=== PATIENT | male | born 1985 | race Two or more races ===

== ENCOUNTER 2020-10-01 18:36 | Emergency (ER) | payer OTHER ==
[~2020-10-01] VITALS: Ht 175.3 cm; Wt 77.3 kg
[2020-10-01 21:09] VITALS: BP 135/58
== END 2020-10-01 21:11 | disposition home or self-care (01) ==
LOC: EMS 18:36
DX: L03.313 Cellulitis of chest wall (principal)
CPT/HCPCS: 99283; Z7502

== ENCOUNTER 2020-10-03 13:16 | Emergency (ER) | payer OTHER ==
[~2020-10-03] VITALS: Ht 175.3 cm; Wt 77.3 kg
[2020-10-03 15:30] VITALS: BP 129/83
[2020-10-03] MEDS ORDERED: LIDOCAINE 1% 10 ML VIAL SQ ONE (15:45)
[2020-10-03] MEDS ORDERED: LIDOCAINE/PF 1% 2 ML VIAL IM ONE (16:00)
[2020-10-03] MEDS ORDERED: CefTRIAXone SODIUM 1 GM/VIAL IM ONE (16:00)
== END 2020-10-03 17:00 | disposition home or self-care (01) ==
LOC: EMS 13:18
DX: L02.213 Cutaneous abscess of chest wall (principal); L03.313 Cellulitis of chest wall
CPT/HCPCS: 10060; 87070; 96372; 99283; J0696; J3490 ×2

== ENCOUNTER 2020-10-05 12:36 | Emergency (ER) | payer OTHER ==
[~2020-10-05] VITALS: Ht 175.3 cm; Wt 77.3 kg
[2020-10-05 12:39] VITALS: BP 129/77
[2020-10-05] MEDS ORDERED: ANTIBIOTIC PO (12:47)
== END 2020-10-05 13:29 | disposition home or self-care (01) ==
LOC: EMS 12:40
DX: Z48.00 Encounter for change or removal of nonsurgical wound dressing (principal)
CPT/HCPCS: Z7502

== ENCOUNTER 2022-06-04 03:23 | Emergency (ER) | payer OTHER ==
[~2022-06-04] VITALS: Ht 175.3 cm; Wt 75.0 kg
[~2022-06-04 03:23] MED LIST: ANTIBIOTIC PO
[2022-06-04] MEDS ORDERED: KETOROLAC TROMETHAMINE 30 MG/ML VIAL IVP ONE (06:30)
[2022-06-04] MEDS ORDERED: HYDROmorphone 2 MG/ML VIAL IVP ONE ×2 (06:30→07:30)
[2022-06-04] MEDS ORDERED: ONDANSETRON HCL 4 MG/2 ML VIAL IVP ONE (06:30)
[2022-06-04] MEDS ORDERED: CefTRIAXone 1 GM/DEXTROSE 50 ML IV ONE (06:30)
[2022-06-04] MEDS ORDERED: LIDOCAINE 1% 20 ML VIAL SQ ONE (06:30)
[2022-06-04 06:47] LABS: BASOPHILS % (AUTO) 0.4 % (0.0-2.0); EOSINOPHILS % (AUTO) 0.3 % (1.0-6.0); HEMATOCRIT 44.2 % (41-53); HEMOGLOBIN 14.8 g/dL (13.5-17.5); LYMPHOCYTES # (AUTO) 1.6 K/uL (1.0-4.8); LYMPHOCYTES % (AUTO) 10.8 % (22.0-44.0); MEAN CORPUSCULAR HGB CONC 33.4 G/dL (31.0-37.0); MEAN CORPUSCULAR VOLUME 90 fL (80-100); MONOCYTES # (AUTO) 1.3 K/uL (0.1-1.0); MONOCYTES % (AUTO) 8.4 % (2.0-9.0); NEUTROPHILS # (AUTO) 12.2 K/uL (1.8-7.7); NEUTROPHILS % (AUTO) 80.1 % (40.0-70.0); PLATELET COUNT (AUTO) 446 K/uL (150-450); RED BLOOD CELL COUNT(AUTO) 4.92 MIL/uL (4.50-5.90)
[2022-06-04 06:56] LABS: ANION GAP 6 mmol/L (8-16); CALCIUM, TOTAL 9.4 mg/dL (8.8-10.5); CARBON DIOXIDE 32 mmol/L (22-29); CHLORIDE 101 mmol/L (98-107); CREATININE 0.66 mg/dL (0.60-1.30); GLOMERULAR FILTR. RATE CALC > 60 mL/min (>60); GLUCOSE,RANDOM 120 mg/dL (70-110); POTASSIUM 4.1 mmol/L (3.5-5.1); SODIUM SERUM 139 mmol/L (136-145); UREA NITROGEN, BLOOD 16 mg/dL (7-18)
[2022-06-04 07:10] VITALS: BP 125/84
[2022-06-04 07:11] LABS: ALANINE AMINOTRANSFERASE 19 U/L (12-78); ALBUMIN 3.8 g/dL (3.4-5.0); ALKALINE PHOSPHATASE 83 U/L (46-116); ASPARTATE AMINOTRANSFERASE 13 U/L (15-37); BILIRUBIN,TOTAL 0.4 mg/dL (0.1-1.0); TOTAL PROTEIN, SERUM 8.3 g/dL (6.4-8.2)
[2022-06-04] MEDS ORDERED: METR500 PO (07:47)
[2022-06-04] MEDS ORDERED: AMOX1TAB16 PO (07:47)
[2022-06-04] MEDS ORDERED: HYDR-4723 PO (07:47)
[2022-06-04] MEDS ORDERED: POLY238P PO (07:47)
[2022-06-04] MEDS ORDERED: IBUP-1554 PO (07:47)
== END 2022-06-04 08:13 | disposition home or self-care (01) ==
LOC: EMS 03:26
DX: K61.1 Rectal abscess (principal)
CPT/HCPCS: 46040; 99284; 96365; 96375; 80053; 85025; 36415; J0696; J1170; J1885; J3490; J2405; 10060

== ENCOUNTER 2023-07-15 16:32 | Emergency (ER) | payer OTHER ==
[~2023-07-15] VITALS: Ht 175.3 cm; Wt 76.4 kg
[~2023-07-15 16:32] MED LIST changes: +AMOX1TAB16 PO; -ANTIBIOTIC PO; +HYDR-4723 PO; +IBUP-1554 PO; +METR500 PO; +POLY238P PO
[2023-07-15 16:33] VITALS: TEMP 98.2
[2023-07-15 16:46] VITALS: BP 129/75; PULSE 116; RESP 18
[2023-07-15] MEDS ORDERED: HYDROCODONE/ACETAMINOPHEN 5-325 MG TABLET PO ONE (17:15)
[2023-07-15] MEDS ORDERED: LIDOCAINE 1% 10 ML VIAL SQ ONE (17:15)
[2023-07-15] MEDS ORDERED: IBUP-1554 PO (18:26)
[2023-07-15] MEDS ORDERED: DOXY-354 PO (18:26)
[2023-07-15] MEDS ORDERED: ACET-2080 PO (18:26)
[2023-07-15] MEDS ORDERED: CEPH-558 PO (18:26)
[2023-07-15] MEDS ORDERED: BACI28.410 TP (18:26)
[2023-07-15] MEDS ORDERED: BACITRACIN 0.9 GM PACKET OINTMENT TP ONE (18:30)
== END 2023-07-15 18:41 | disposition home or self-care (01) ==
LOC: EMS 16:32
DX: L03.011 Cellulitis of right finger (principal)
CPT/HCPCS: 99283; 10060; J3490

== ENCOUNTER 2025-03-20 14:27 | Emergency (ER) | payer BC, OTHER ==
[~2025-03-20] VITALS: Ht 177.8 cm; Wt 77.3 kg
[~2025-03-20 14:27] MED LIST changes: +ACET-2080 PO; -AMOX1TAB16 PO; +BACI28.410 TP; +CEPH-558 PO; +DOXY-354 PO; +HYDR-4062 PO; -HYDR-4723 PO; -METR500 PO
[2025-03-20 14:32] VITALS: BP 127/88; PULSE 88; RESP 18; TEMP 98.2; O2SAT 99
[2025-03-20] MEDS: CEPHALEXIN MONOHYDRATE 500 MG CAPSULE PO ONE (14:57)
[2025-03-20] MEDS: SULFAMETHOX/TRIMETH DS 800-160 MG/TABLET PO ONE (14:57)
[2025-03-20] MEDS ORDERED: SULF-261 PO (15:00)
[2025-03-20] MEDS ORDERED: CEPH-558 PO (15:00)
== END 2025-03-20 15:09 | disposition home or self-care (01) ==
LOC: EMS 14:27
DX: L03.116 Cellulitis of left lower limb (principal)
CPT/HCPCS: 99284; Z7502; Z7610

== ENCOUNTER 2025-05-07 19:27 | Inpatient (IN) | payer BC, OTHER ==
[~2025-05-07] VITALS: Ht 175.3 cm; Wt 72.0 kg
[~2025-05-07 19:27] MED LIST changes: -ACET-2080 PO; -BACI28.410 TP; -DOXY-354 PO; -HYDR-4062 PO; -IBUP-1554 PO; -POLY238P PO; +SULF-261 PO
[2025-05-07] MEDS: 0.9% SODIUM CHLORIDE 10 ML SYRINGE IVP PRN (20:04)
[2025-05-07] MEDS: ACETAMINOPHEN 1000 MG/ISO-OSM 100 ML IV ONE (20:04)
[2025-05-07] MEDS: SODIUM CHLORIDE 0.9% 2,150 ML IV ONE (20:05)
[2025-05-07 20:13] LABS: COVID AG,FIA SOURCE NASAL SWAB
[2025-05-07 20:15] LABS: PLATELET COUNT (AUTO) 304 K/uL (150-450); RED BLOOD CELL COUNT(AUTO) 5.13 MIL/uL (4.50-5.90); RED CELL DISTRIBUTION WIDTH 14.4 % (11.5-14.5); WHITE BLOOD COUNT (AUTO) 4.4 K/uL (4.5-11.0)
[2025-05-07 20:26] LABS: CALCIUM, TOTAL 8.1 mg/dL (8.8-10.5); CREATININE 0.92 mg/dL (0.60-1.30); GLOMERULAR FILTR. RATE CALC > 60 mL/min (>60); GLUCOSE,RANDOM 105 mg/dL (70-110); SODIUM SERUM 134 mmol/L (136-145); UREA NITROGEN, BLOOD 10 mg/dL (7-18)
[2025-05-07 20:31] LABS: ALCOHOL, BLOOD (SERUM) < 3 mg/dL (0-10)
[2025-05-07 20:32] LABS: ASPARTATE AMINOTRANSFERASE 17 U/L (15-37); CREATINE KINASE, TOTAL ONLY 84 U/L (39-308); TOTAL PROTEIN, SERUM 7.4 g/dL (6.4-8.2); TROPONIN I-HIGH SENSITIVITY 4 ng/L (<76)
[2025-05-07 20:35] LABS: LACTIC ACID 0.6 mmol/L (0.4-2.0)
[2025-05-07] MEDS ORDERED: IOHEXOL 350 MG/ML 100 ML VIAL ONE (20:46)
[2025-05-07] MEDS ORDERED: SODIUM CHLORIDE 0.9% 100 ML ONE (20:46)
[2025-05-07] MEDS ORDERED: 0.9% SODIUM CHLORIDE 10 ML SYRINGE IVP ONE (20:46)
[2025-05-07 20:57] LABS: SARS-COV2 (COVID) ANTIGEN,FIA Negative (Negative)
[2025-05-07 20:59] LABS: INFLUENZA TYPE A NEGATIVE FOR TYPE A (NEGATIVE); INFLUENZA TYPE B NEGATIVE FOR TYPE B (NEGATIVE)
[2025-05-07] MEDS: AMPICILLIN SODIUM/SULBACTAM NA 3 GM in SODIUM CHLORIDE 0.9% 100 ML IV ONE (22:12)
[2025-05-07 22:19] LABS: APPEARANCE,URINE CLEAR (CLEAR); GLUCOSE, URINE (UA) NEGATIVE (NEGATIVE); LEUKOCYTE ESTERASE ,URINE NEGATIVE (NEGATIVE); NITRATE,URINE NEGATIVE (NEGATIVE); OCCULT BLOOD,URINE NEGATIVE (NEGATIVE); PH,URINE DRUG SCREEN 6.5 (5.0-8.0); SPECIFIC GRAVITIY, URINE > 1.030 (1.003-1.030)
[2025-05-07 22:22] LABS: ALCOHOL, URINE DRUG SCREEN NEGATIVE (NEGATIVE); AMPHET/METH SCREEN,URINE NEGATIVE (NEGATIVE); BARBITURATE SCREEN, URINE NEGATIVE (NEGATIVE); CANNABINOID SCREEN,URINE NEGATIVE (NEGATIVE); COCAINE SCREEN,URINE NEGATIVE (NEGATIVE); METHADONE SCREEN, URINE NEGATIVE (NEGATIVE)
[2025-05-07 23:13] VITALS: BP 121/85; PULSE 74; RESP 18; TEMP 99.1; O2SAT 96
[2025-05-08] MEDS ORDERED: HYDROCODONE/ACETAMINOPHEN 5-325 MG TABLET PO PRN (01:30)
[2025-05-08] MEDS ORDERED: ALBUTEROL SULFATE 2.5 MG/0.5 ML NEB SOLUTION NEB PRN (01:30)
[2025-05-08] MEDS ORDERED: MORPHINE SULFATE 2 MG/ML SYRINGE IVP PRN (01:30)
[2025-05-08] MEDS ORDERED: MAGNESIUM HYDROXIDE SUSPENSION 30 ML UDCUP PO PRN (01:30)
[2025-05-08] MEDS ORDERED: IPRATROPIUM BROMIDE 0.5 MG/2.5 ML NEB SOLUTION NEB PRN (01:30)
[2025-05-08] MEDS ORDERED: BISACODYL 10 MG RECTAL RECTAL SUPPOSITORY PR PRN (01:30)
[2025-05-08] MEDS ORDERED: ONDANSETRON HCL 4 MG/2 ML VIAL IVP PRN (01:30)
[2025-05-08] MEDS ORDERED: ZOLPIDEM TARTRATE 5 MG TABLET PO PRN (01:30)
[2025-05-08] MEDS ORDERED: SODIUM CHLORIDE 0.9% 250 ML IV ONE (02:35)
[2025-05-08] MEDS: VANCOMYCIN 1.5 GM/WATER(PEG) 300 ML IV ONE (02:47)
[2025-05-08] MEDS: CefTRIAXone 1 GM/DEXTROSE 50 ML IV SCH (04:09)
[2025-05-08 04:57] VITALS: BP 121/87; PULSE 99; RESP 18; TEMP 100.4; O2SAT 97
[2025-05-08] MEDS: ACETAMINOPHEN 325 MG TABLET PO PRN (05:09)
[2025-05-08 08:43] VITALS: BP 124/73; PULSE 91; RESP 18; TEMP 98.2; O2SAT 98
[2025-05-08] MEDS: HEPARIN SODIUM,PORCINE 5,000 UNITS/ML VIAL SQ SCH (08:49)
[2025-05-08] MEDS: PANTOPRAZOLE SODIUM 40 MG DR TABLET PO SCH (08:49)
[2025-05-08] MEDS: VANCOMYCIN 1GM/WATER(PEG/NADA) 200 ML IV SCH (08:50)
[2025-05-08] MEDS: AMPICILLIN SODIUM/SULBACTAM NA 3 GM in SODIUM CHLORIDE 0.9% 100 ML IV SCH (15:03)
[2025-05-08 16:08] VITALS: BP 118/84; PULSE 93; RESP 18; TEMP 99.5; O2SAT 99
[2025-05-08 22:41] LABS: GLUCOMETER DEV NAME(LOC) 6S.2; GLUCOSE,POINT OF CARE 104 MG/DL (70-110)
[2025-05-09 06:09] VITALS: BP 101/74; PULSE 91; RESP 18; TEMP 98.6; O2SAT 97
[2025-05-09 06:21] LABS: PLATELET COUNT (AUTO) 240 K/uL (150-450); RED BLOOD CELL COUNT(AUTO) 4.95 MIL/uL (4.50-5.90); RED CELL DISTRIBUTION WIDTH 14.4 % (11.5-14.5); WHITE BLOOD COUNT (AUTO) 5.5 K/uL (4.5-11.0)
[2025-05-09 06:30] LABS: CALCIUM, TOTAL 7.8 mg/dL (8.8-10.5); CREATININE 0.76 mg/dL (0.60-1.30); GLOMERULAR FILTR. RATE CALC > 60 mL/min (>60); GLUCOSE,RANDOM 108 mg/dL (70-110); SODIUM SERUM 135 mmol/L (136-145); UREA NITROGEN, BLOOD 9 mg/dL (7-18)
[2025-05-09 08:39] VITALS: BP 109/76; PULSE 85; RESP 18; TEMP 98.4; O2SAT 98
[2025-05-09] MEDS ORDERED: AMOX1TAB15 PO (09:41)
== END 2025-05-09 14:15 | disposition home or self-care (01) | DRG 872 ==
LOC: EMS 19:27 → EDH 21:57 → 6S 23:02
PROVIDERS: ADMIT Hospitalist; ATTEND Hospitalist
DX: A41.9 Sepsis, unspecified organism (principal); K02.9 Dental caries, unspecified; Z20.822 Contact with and (suspected) exposure to COVID-19; K04.7 Periapical abscess without sinus; Z79.899 Other long term (current) drug therapy
CPT/HCPCS: 70450; 70487; 71045; 80048; 80076; 80307; 81003; 82550; 82962; 83605; 83735; 83880; 84145; 84484; 85025; 85610; 87040; 87430; 87804; 93005; 96361; 96365; 96375; 99291; G0480; J0131; J0295; J0696; J1644; J7030; J7050; 36415-L1; 36415-TC